=== PATIENT | male | born 1960 | race Caucasian/White ===

== ENCOUNTER 2017-12-09 10:22 | Emergency (ER) | payer MEDICARE, MEDICAID, OTHER | END 2017-12-09 10:44 | disposition home or self-care (01) | LOC: FTE 10:22 | DX: R09.82 Postnasal drip (principal); E11.9 Type 2 diabetes mellitus without complications | CPT/HCPCS: 99283 ==

== ENCOUNTER 2018-05-16 17:07 | Emergency (ER) | payer SELFPAY, OTHER, MEDICARE | END 2018-05-16 21:23 | disposition left against medical advice (07) | LOC: FTE 17:07 | DX: Z53.21 Procedure and treatment not carried out due to patient leaving prior to being seen by health care provider (principal) ==